=== PATIENT | female | born 1990 | race Caucasian/White ===

== ENCOUNTER 2021-09-15 10:09 | Emergency (ER) | payer BC, MEDICAID ==
[2021-09-15] MEDS ORDERED: Sodium Chloride 0.9% 10 ML Syringe FLUSH PRN (11:03)
[2021-09-15] MEDS ORDERED: HYDROmorphone 0.5 MG/0.5 ML Syringe IVPUSH ONE (11:12)
[2021-09-15] MEDS ORDERED: Ondansetron 4 MG/2 ML SDV IVPUSH ONE (11:12)
[2021-09-15] MEDS ORDERED: Sodium Chloride 0.9% 1,000 ML IV STA (11:12)
== END 2021-09-15 14:47 | disposition home or self-care (01) ==
LOC: JD.ED 10:09
DX: R10.11 Right upper quadrant pain (principal); Z91.040 Latex allergy status; Z91.041 Radiographic dye allergy status; Z91.018 Allergy to other foods; Z79.899 Other long term (current) drug therapy
CPT/HCPCS: 36415; 74176; 76705; 80053; 81001; 83690; 84703; 85025; 86140; 96374; 96375; 99284; J1170; J2405; J7030; 99285